=== PATIENT | male | born 2000 | race Caucasian/White ===

== ENCOUNTER 2022-10-09 20:33 | Outpatient (REF) | payer MEDICAID, SELFPAY ==
[2022-10-09 20:30] LABS: Abs Immature Grans 0.01 10^3/uL (0.0-0.06); Absolute Basophil Count 0.02 10^3/uL (0.0-0.2); Absolute Eosinophil Count 0.46 10^3/uL (0.0-0.7); Absolute Lymphocyte Count 2.36 10^3/uL (1.2-3.4); Absolute Monocyte Count 0.47 10^3/uL (0.1-0.8); Basophils % 0.3; Eosinophils % 6.6; HCT 42.4 % (40.0-50.0); HGB 14.8 g/dL (13.5-17.5); Immature Grans % 0.1; Lymphocytes % 34.1; MCH 29.7 pg (27.0-33.0); MCHC 34.9 % (32.0-36.0); MCV 85 fL (80-95); MPV 9.7 fL (8.0-11.0); Monocytes % 6.8; Neutrophils % 52.1; Platelet Count 229 10^3/uL (130-400); RBC 4.99 10^6/uL (4.36-5.78); RDW 12.3 % (11.8-14.1); RDW-SD 37.9 fL; WBC 6.92 10^3/uL (4.4-10.8)
[2022-10-09 20:52] LABS: ALT 27 U/L (16-63); AST 21 U/L (15-37); Albumin 4.4 g/dL (3.4-5.0); Alkaline Phosphatase 79 U/L (46-116); Anion Gap 8.8 mmol/L (3-11); BUN 16 mg/dL (7-18); Bilirubin, Total 0.3 mg/dL (0.2-1.0); CO2 28.2 mmol/L (21.0-32.0); CREATININE 0.9 mg/dL (0.70-1.30); Calcium 9.2 mg/dL (8.5-10.1); Chloride 104 mmol/L (98-107); Estimated GFR 123.84 (mL/min/1.73m2); Glucose 89 mg/dL (74-106); Sodium 141 mmol/L (136-145); TSH (W/Ref FT4) 1.64 uIU/mL (0.36-3.74); Total Protein 7.8 g/dL (6.4-8.2)
== END 2022-10-09 20:34 | disposition home or self-care (01) ==
LOC: NCHCN 20:33
PROVIDERS: Visit Provider Family Medicine
DX: I10 Essential (primary) hypertension (principal); R06.02 Shortness of breath
CPT/HCPCS: 80053; 84443; 85025

== ENCOUNTER 2024-12-08 10:54 | Emergency (ER) | payer MEDICAID, SELFPAY ==
[2024-12-08 10:56] VITALS: BP 151/93; PULSE 93; RESP 15; TEMP 36.4; O2SAT 96
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
--- NOTE | 2024-12-08 11:15 | DI.RAD_ITS ---
Exam(s) XR WRIST LT COMPLETE EXAM: XR WRIST LT COMPLETE CLINICAL HISTORY: Left wrist pain. TECHNIQUE: 2D digital imaging was performed. COMPARISON: No exams were available for comparison FINDINGS: 3 views No evidence of fracture or dislocation nor significant ulnar variance. Scaphoid and scapholunate distance are normal. Bone density normal. No osseous lesions. No radiopaque foreign bodies. IMPRESSION: No significant osseous findings in the left breast. DATA REPOSITORY: RADIATION DOSE DELIVERED:
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
[2024-12-08 12:00] LABS: Abs Immature Grans 0.01 10^3/uL (0.0-0.06); HCT 41.8 % (40.0-50.0); HGB 14.5 g/dL (13.5-17.5); Immature Grans % 0.2 %; MCH 28.8 pg (27.0-33.0); MCHC 34.7 % (32.0-36.0); MCV 83 fL (80-95); MPV 9.6 fL (8.0-11.0); Platelet Count 254 10^3/uL (130-400); RBC 5.03 10^6/uL (4.36-5.78); RDW 12.4 % (11.8-14.1); RDW-SD 37.3 fL; WBC 6.64 10^3/uL (4.4-10.8)
[2024-12-08 12:23] LABS: Anion Gap 9.0 mmol/L (3-11); BUN 11 mg/dL (7-18); CO2 27.0 mmol/L (21.0-32.0); Calcium 9.5 mg/dL (8.5-10.1); Chloride 105 mmol/L (98-107); Estimated GFR 131.95 (mL/min/1.73m2); Glucose 97 mg/dL (74-106); Potassium 3.9 mmol/L (3.5-5.1); Sodium 141 mmol/L (136-145)
[2024-12-08] MEDS: Omnipaque 350 MG/ML 100 ML BTL IJ (12:47)
[2024-12-08 12:48] VITALS: BP 137/81; PULSE 81; RESP 18; O2SAT 99
[2024-12-08] MEDS: Normal Saline Flush 10 ML SYR IVP (12:48)
[2024-12-08] MEDS: Normal Saline - Diluent 50 ML VIAL IJ (12:48)
[2024-12-08] MEDS: Acetaminophen 500 MG TAB 1000 MG PO (13:21)
[2024-12-08] MEDS: Ibuprofen 600 MG TAB PO (13:21)
== END 2024-12-08 13:54 | disposition home or self-care (01) ==
LOC: ER 12:51
PROVIDERS: Emergency Provider Emergency Medicine
DX: M54.2 Cervicalgia (principal); V89.2XXA Person injured in unspecified motor-vehicle accident, traffic, initial encounter
CPT/HCPCS: 99285; 99283; 36415; 74177; 80048; 70450; 71260; 72125; 73110; 85025; J3490